=== PATIENT | male | born 1950 | race Caucasian/White ===

== ENCOUNTER 2019-07-03 07:28 | Inpatient (IN) | payer OTHER, BC ==
[2019-06-19 12:50] LABS: URINE BILIRUBIN NEGATIVE (Negative); URINE BLOOD TRACE (Negative); URINE CLARITY CLEAR; URINE COLOR YELLOW; URINE GLUCOSE-RANDOM* TRACE (Negative); URINE KETONES NEGATIVE (Negative); URINE LEUKOCYTES-REFLEX NEGATIVE (Negative); URINE NITRITE-REFLEX NEGATIVE (Negative); URINE PROTEIN (DIPSTICK) NEGATIVE (Negative); URINE UROBILINOGEN 0.2 E.U./dl (0.2-1.0)
--- NOTE | 2019-06-19 17:17 | EKG ---
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: [facility] : 1950 Requested By: Nigel Navarro Order Number: [id number] MD: Winston Richardson Measurements Intervals [place] Rate: 70 P: 49 ID: 182 QRS: -24 QRSD: 112 T: 77 QT: 397 QTc: 429 Interpretive Statements Sinus rhythm Ventricular bigeminy No previous ECG available for comparison Electronically Signed On 06-19-2019 17:17:23 CDT by Winston Richardson [email or web address] <ELECTRONICALLY SIGNED> By: Winston Richardson MD, [facility] 06/19/19 1717 1256 1256 Winston Richardson MD, FACC /EPI
[2019-07-03] VITALS (7 sets, daily range): BP systolic 109–135; BP diastolic 56–70
[~2019-07-03] VITALS: Ht 180.3 cm; Wt 94.8 kg
[~2019-07-03 07:28] MED LIST: ALLOPURINOL 10100 M3 PO; BACTROBAN CREAM30 G1; COLCHICINE0.6 MG PO; HYDROCODONE-AP1 EAC6 PO; PREDNISONE 10 M10 MG PO; PREDNISONE 5 MG5 M1 PO; PRILOSEC 20 MG20 MG PO; RENVELA800 MG PO; TUMS200 MG PO
--- NOTE | 2019-07-03 16:37 | NUR ---
TO UNIT FROM PACU BY BED AT 1500. DENIES PAIN. VSS. AT BEDSIDE. ORIENTED TO ROOM, MENU, AND UNIT. TWO SMALL BLOOD SPOTSF OUTLINED WITH SHARPIE. PEDAL PULSES 2+, DOYLE DIXON AND SCD'S IN PLACE. APNEA MONITOR, O2 AT 2L PER NC. WILL CONTINUE TO FOLLOW CLOSELY.
--- NOTE | 2019-07-04 03:10 | NUR ---
ASSUMED CARE OF PT @1900 PT ASSESSED AT START OF SHIFT A&OX4 DENIES PAIN. FLUIDS AND ABX INFUSING. AT SHIFT CHANGED AM NURSE DRAINED 350ML OF HEMOVAC WILL MONITOR DRAIN FOR TONIGHT. KATHY DRESSING IN PLACE AND SPOT MONITORED. SCD'S AND DOYLE HOSE IN PLACEPT HAS SLEEP APNEA DOESN'T USE ANY MACHINE AT HOME O2 @3L BEDTIME AND APNEA MONITOR IN PLACE. FALL PREC IN PLACE AND CALL LIGHT WITHIN REACH WILL CONT WITH POC TILL EOS.
[2019-07-04 05:34] LABS: HEMATOCRIT 26.6 % (42.0-52.0); HEMOGLOBIN 8.8 gm/dL (14.0-18.0); MCH 29.6 pg (26.0-34.0); MCHC 33.2 g/dL (28.0-37.0); MCV 89.1 fL (80.0-100.0); RBC 2.98 mil/uL (4.50-6.00); RDW 14.9 % (10.5-14.5); WBC 9.5 thou/uL (4.0-11.0)
[2019-07-04 09:01] VITALS: BP 114/50
--- NOTE | 2019-07-04 10:00 | NUR ---
INITIAL ASSESSMENT: Pt evaluated for d/c planning needs. Reviewed chart and spoke with nurse and pt. Pt is alert and oriented. Pt lives in house with spouse and was independent with ADL's prior to admission to the hospital. Pt has walker and cane at home. Pt has not had home health in the past. Pt has outpatient PT arranged. Pt plans on returning home on d/c from hospital. Will remain available to assist as needed.
[2019-07-04 10:21] VITALS: BP 114/50
--- NOTE | 2019-07-04 11:41 | NUR ---
PT CARE ASSUMED APPROX 0700. A&Ox4 PT IS ON NIGHT O2 WITH O2 IN THE LOW 90'S. HE IS ON 3L. MEDICATION ARE NOW RECONCILED. HE IS COMPLAINING ABOUT GOUT PAIN. KATHY DRESSING INTACT. ICEPACK IN PLACE. SCD'S IN PLACE. HEMOVAC WILL BE DC TODAY. FISTULA IN R. UA NOT IN USE. PT. DID PT GOT UP IN THE CHAIR AND BACK IN. WILL TRY AGAIN LATER TODAY
--- NOTE | 2019-07-04 12:37 | O ---
[facility] [place] [address] OPERATIVE REPORT Name: JUDY MCCLURE JR Room #: 436-P ADM IN M.R.#: [id number] Admission: 07/03/19 Attend Phys: Nigel Navarro MD Discharge: Date of : 46 Report #: [id number] THIS REPORT FOR: //name// CC: Nigel Miller DATE OF SERVICE: 07/03/2019 PREOPERATIVE DIAGNOSIS: End-stage degenerative arthritis, right knee. POSTOPERATIVE DIAGNOSIS: End-stage degenerative arthritis, right knee. PROCEDURE: Right total knee arthroplasty. SURGEON: Nigel Navarro MD INDICATIONS: This still active self-employed 68-year-old gentleman complains of severe progressive right knee pain. Clinical exam and x-rays confirm severe degenerative change with moderate varus malalignment. We discussed treatment options and elected to go ahead with right total knee arthroplasty. DESCRIPTION OF PROCEDURE: The patient was taken to the operating room where he was placed under general anesthesia. Prophylactic intravenous antibiotics were administered. A femoral nerve block was applied. General anesthesia was applied. Prophylactic intravenous antibiotics were given. The right knee and leg were meticulously prepped and draped. A thigh tourniquet was applied and inflated to 300 mmHg. An anterior longitudinal skin incision was made and carried through the medial retinaculum. The patella was reflected laterally. Moderately severe degenerative change in all 3 compartments was noted. The Balderas and Nephew knee system was utilized. Intramedullary guides were used on both the femur and the tibia. The femur was cut in 5 degrees of valgus and the tibia cut perpendicular to long axis of the bone. Sufficient bone was resected to correct the moderate flexion contracture and varus malalignment. The femur was best suited for a size 6 femoral component. The tibia was best suited for a size 5 tibial component. A 10 mm polyethylene insert resulted in good alignment, range of motion and stability. The knee fully extends and flexes beyond 140 degrees. The patellar surface was resected and a 35 mm patellar button seemed to fit nicely. Appropriate anchor holes were created. The patella tracks well and appeared stable. The trial components were removed. The surfaces were thoroughly irrigated and dried. The intramedullary canal was blocked with a bone block on both the femoral and tibial sides. Methyl methacrylate cement was mixed and injected into the porous surface of the tibia. The Balderas and Nephew size 5 tibial baseplate was inserted impacting this into good position. It seated nicely and appeared to be secure. A 10 mm polyethylene insert using the Legion cruciate retaining style was selected. This was impacted and snapped into place and seated nicely and appeared to be [address] [address] OPERATIVE REPORT Name: JUDY MCCLURE JR Room #: 436-P [facility] IN ..#: [id number] Admission: 07/03/19 Attend Phys: Nigel Navarro MD Discharge: Date of : 46 Report #: [id number]. A size 6 femoral component was then impacted on to the distal femur using a small amount of cement at the distal holes to make sure I correctly stayed at the tibia. Tibial baseplate was a size 5 and the femoral is a size 6. The femoral component seated nicely and appeared to be secure. A 35 mm patellar button was cemented into place using appropriate anchor holes. A patellar clamp was used until the cement had hardened. All excess cement was removed from around its margin. Once the cement was firm, alignment, range of motion and stability were assessed and felt to be satisfactory. A single Hemovac was left in the wound exiting through a separate stab incision. The fascia was closed with multiple #1 Vicryl sutures. The subcutaneous tissues were closed with 0 Monocryl. The skin was closed with skin kemar. A sterile dressing was applied. The patient was awakened and returned to recovery room in good condition. <ELECTRONICALLY SIGNED> By: Nigel Navarro MD 07/04/19 1237 1129 [id number] Nigel Navarro MD /nt
[2019-07-04 15:37] VITALS: BP 113/68
[2019-07-04 15:44] VITALS: BP 126/60
[2019-07-04 19:40] VITALS: BP 141/57
--- NOTE | 2019-07-05 02:48 | NUR ---
ASSUMED PT CARE ON 07/04/19. PT IS ALERT AND ORIENTED X4. PT STATES THAT HIS PAIN IS AT A 5 ON THE NUMERIC SCALE. PT WAS ADMINISTERED PAIN MEDICATION ALONG WITH HIS SCHEDULED MEDICATION PT REFUSED THE ENOXAPRIN. I REFILLED HIS ICE PACK. PT VOIDED IN URINAL. WEENING PT OFF OF OXYGEN BECAUSE HE DOES NOT US IT AT HOME. RIGHT NOW PT IS ON 1L. PT THOUGHT IF WE TOOK THE OCYGEN OFF THAT HE WOULD BE ABLE TO TAKE OFF THE CO2 MONITOR. I EDUCATED HIM ON WHY HE WAS ON THE MONITOR. PT STATES THAT HE IS ANNOYED WITH HIS MONITOR GOING OFF. WHEN OFFERED EAR PLUGS HE SAID THEY DO NOT WORK WELL. WILL CONTINUE TO MONITOR.
[2019-07-05 05:14] VITALS: BP 135/75
[2019-07-05 05:35] LABS: HEMOGLOBIN 7.6 gm/dL (14.0-18.0); MCH 29.7 pg (26.0-34.0); MCHC 33.2 g/dL (28.0-37.0); MCV 89.3 fL (80.0-100.0); RBC 2.58 mil/uL (4.50-6.00); RDW 14.8 % (10.5-14.5); WBC 7.9 thou/uL (4.0-11.0)
[2019-07-05 07:38] VITALS: BP 134/71
[2019-07-05 17:20] VITALS: BP 136/67
[2019-07-05 19:20] VITALS: BP 140/64
--- NOTE | 2019-07-05 22:55 | NUR ---
ASSESSMENT COMPLETED. PT IS ALERT AND ORIENTED. DENIES PAIN WHILE AT REST.TOMAS TEDS IN PLACE.ICEPAK APPLIED TO R KNEE.PT USES HEATING PAD FROM HOME FOR R THIGH PAIN. PT REFUSED LOVENOX TONIGHT.DRSG TO R KNEE IS C/D/I.PT IS SATTING >97% ON ROOM AIR.AFEBRILE. PT VOIDING OKAY PER URINAL. PT DOING SIMPLE EXERCISES WITH RLE.CALL LIGHT WITHIN REACH.
[2019-07-06] VITALS (10 sets, daily range): BP systolic 102–135; BP diastolic 29–83
[2019-07-06 05:22] LABS: HEMATOCRIT 21.2 % (42.0-52.0); HEMOGLOBIN 7.1 gm/dL (14.0-18.0); MCHC 33.8 g/dL (28.0-37.0); RBC 2.38 mil/uL (4.50-6.00); RDW 14.9 % (10.5-14.5); WBC 7.9 thou/uL (4.0-11.0)
--- NOTE | 2019-07-06 12:31 | NUR ---
PT SEEN BY DR. GLORIA AND PHIL THIS AM. FEELING DIZZY WITH POSTURAL CHANGES AND HGB 7.1 THIS AM. PT RECIEVING ONE UNIT PRBC'S TODAY. WORKED W/ THERAPIST THIS AM AND SITTING IN RECLINER.
--- NOTE | 2019-07-06 13:34 | NUR ---
PT UP TO THE BSC W/ GAIT BELT AND ASSIST OF 2 TO BSC FOR BM. UPON STANDING AND RETURNING TO THE RECLINER PT DID NOT RESPOND BUT STARRED STRAIGHT AHEAD. CODE CALLED AND RECLINED PT BACK FAR POSSIBLE AND PICKED LEGS UP IN THE AIR AND PT CAME BACK AROUND. PT STATED HE FELT FINE AND COULD HEAR ME CALL HIS NAME BUT COULDN'T RESPOND. BLOOD TRANSFUSION NOTED TO BE INFILTRATED AND IV NURSE SUMMONED TO RESTART PT SKIN VERY THIN AND BRUISED. BP NOW TAKING IN LT LL 115/29.
--- NOTE | 2019-07-06 18:10 | NUR ---
DR. VILLARREAL UPDATED ON PT CONDITION AFTER BLOOD TRANSFUSION. PT FEELING BETTER-COLOR BETTER. TAKING BP IN LT LOWER LEG AND BP BETTER NOW. REPEAT HGB IN AM. USING BEDPAN THIS EVENING. HERE FOR VISIT.
[2019-07-07 04:34] VITALS: BP 107/47
--- NOTE | 2019-07-07 05:29 | NUR ---
ASSUMED CARE OF PT @1900 PT ASSESSED AT START OF SHIFT A&OX4 WITH C/O PAIN IN RT KNEE PAIN MEDS GIVEN AND ICE PACK REFILLED. OFFERED TO GET PT UP IN BED STARTED HE WAS FINE FOR NOW AND WILL GET UP TOWARDS THE MORNING. ENCOURAGED LEG MOVEMENTS IN BED. PT CALLED OUT TOWARDS THE NIGHT STATED FEELING A LITTLE DISCONNECTED TO PLACE, AND DIZZY LAYING DOWN. FULL ASSESSMENT DONE AND NEURO INTACT, A&OX4. VITALS DONE AND LOW DIASTOLIC BP NOTED 104/36. PT DRINKING LOTS OF PO FLUIDS. SPOKE WITH ONCALL AND ONETIME ORDER OF 500ML NS BAG GIVEN. BP CAME UP TO 107/47. NO OTHER SYMPTOMS. PT STATED FEELING BETTER. FALL PREC INPLACE AND CALL LIGHT WITHIN REACH WILL CONT WITH POC TILL EOS.
[2019-07-07 05:49] LABS: HEMATOCRIT 21.7 % (42.0-52.0); HEMOGLOBIN 7.3 gm/dL (14.0-18.0); MCH 29.9 pg (26.0-34.0); MCHC 33.6 g/dL (28.0-37.0); MCV 88.9 fL (80.0-100.0); RBC 2.44 mil/uL (4.50-6.00); RDW 14.5 % (10.5-14.5)
[2019-07-07 07:30] VITALS: BP 145/50
--- NOTE | 2019-07-07 12:27 | EKG ---
[address] [employer] [place] [address] ELECTROCARDIOGRAM REPORT Name: JUDY MCCLURE JR Room #: 436-P ADM IN M.R.#: [id number] Admission: 07/03/19 Attend Phys: Nigel Navarro MD Discharge: Date of : 46 Report #: [id number] THIS REPORT FOR: //name// [facility] Test Date: 2019-07-06 Test Time: 14:59:29 Pat Name: JUDY MCCLURE Department: Room: 436 P Gender: M Title Department Manager: Baljeet PARKER : 1950 Requested By: Landry De La Torre Order Number: [id number] MD: Ezio Bill Measurements Intervals [place] Rate: 88 P: 30 CO: 185 QRS: -25 QRSD: 111 T: 108 QT: 353 QTc: 427 Interpretive Statements Sinus rhythm Borderline left axis deviation Borderline repolarization abnormality Compared to ECG 06/19/2019 12:56:03 Ventricular premature complex(es) no longer present Electronically Signed On 07-07-2019 12:26:58 FRESH WORK INSPECTOR by Ezio Bill [email or web address] <ELECTRONICALLY SIGNED> By: Ezio Bill MD 07/07/19 1226 1459 58 Ezio Bill MD /CRYSTAL
--- NOTE | 2019-07-07 13:17 | NUR ---
ASSUMED CARE OF PT AT 0700. PT IS IN L UPPER ARM DRY AND INTACT. KATHY DRESSING CLEAN, DRY AND INTACT, WITH NO DRAINAGE OBSERVED. PT WAS UNABLE TO FULFILL PT OUT OF [facility] ROOM DUE TO DIZZINESS. PAIN CONTROLLED BY PAIN MEDICATION. BP IS RUNNING LOW AND IS BEING MONITORED. PT IS IN CHAIR WITH ALARM ON AND FEET ELEVATED. CALL LIGHT WITHIN REACH AND FALL PRECAUTIONS IN PLACE. WILL CONTINUE TO MONITOR THE PT.
[2019-07-07 15:56] VITALS: BP 117/46
[2019-07-07 20:00] VITALS: BP 173/66
[2019-07-07 23:48] VITALS: BP 152/64
[2019-07-08 05:34] LABS: HEMOGLOBIN 6.9 gm/dL (14.0-18.0)
[2019-07-08 05:37] LABS: HEMATOCRIT 20.3 % (42.0-52.0); MCH 30.3 pg (26.0-34.0); MCHC 34.2 g/dL (28.0-37.0); MCV 88.7 fL (80.0-100.0); RBC 2.29 mil/uL (4.50-6.00); RDW 14.6 % (10.5-14.5)
--- NOTE | 2019-07-08 07:30 | NUR ---
PATIENT ALERT AND ORIENTED X4. AT BEDSIDE IN EARLY EVENING, HOWEVER, DID NOT STAY THE NIGHT. USING URINAL WITH CLEAR LIGHT YELLOW URINE. NO BM. DENIES ANY SIGNIFICANT PAIN (RATED 2) AND REFUSED PAIN MEDICATION DURING THE NIGHT. DRESSING DRY AND INTACT. ICE PACK PRN. NOT UP DURINIG THE NIGHT. WILL MONITOR.
[2019-07-08 08:24] VITALS: BP 102/58
--- NOTE | 2019-07-08 10:18 | NUR ---
ASSUMED CARE OF PT AT 0700. PHYSICAL THERAPY WALKED WITH THE PT AROUND THE ROOM WITHOUT DIZZINESS. PTS HGB IS 6.9, BLOOD TRANSFUSION HAS BEEN ORDERED AND CONSENTS HAVE BEEN SIGNED. PT HAS BEEN DOING LEG EXERCISES IN THE BED. PAIN IS BEING CONTROLLED BY PAIN MEDICATIONS. FALL PRECAUTIONS ARE IN PLACE AND CALL LIGHT IS WITHIN REACH. CHAIR AND BED ALARM IS ON. WILL CONTINUE TO MONITOR THE PT.
[2019-07-08 11:32] VITALS: BP 93/73
[2019-07-08 16:07] VITALS: BP 114/58; BP 93/73
[2019-07-08 19:40] VITALS: BP 103/39
[2019-07-09 04:10] VITALS: BP 137/47
--- NOTE | 2019-07-09 04:11 | NUR ---
PATIENT ALERT AND ORIENTED X4. C/O KNEE PAIN AND MEDICATED WITH GOOD RESULTS. COOPERATIVE WITH CARE. USING URINAL WITH CLEAR LIGHT YELLOW URINE. PATIENT NOT UP DURING THE NIGHT. RESTING QUIETLY. WILL MONITOR.
[2019-07-09 05:32] LABS: HEMOGLOBIN 8.8 gm/dL (14.0-18.0); MCH 29.9 pg (26.0-34.0); MCHC 33.8 g/dL (28.0-37.0); MCV 88.5 fL (80.0-100.0); RBC 2.94 mil/uL (4.50-6.00); RDW 14.9 % (10.5-14.5); WBC 6.8 thou/uL (4.0-11.0)
[2019-07-09 08:50] VITALS: BP 136/54
--- NOTE | 2019-07-09 14:29 | NUR ---
ASSUMED CARE OF PT AT 0700. PT IS UP AND WALKING AROUND THE ROOM AND DOWN THE HALLS WITHOUT FATIGUE AND SOME PAIN. PT HAD A FORMED BM TODAY. HGB IS 8.8. L UPPER ARM IV IS DRY AND INTACT. CALL LIGHT IS WITHIN REACH AND BED IS IN THE LOWEST POSITION WITH BED ALARM ON. WILL CONTINUE TO MONITOR THE PT.
[2019-07-09 16:38] VITALS: BP 126/106
[2019-07-09 19:02] VITALS: BP 124/51
--- NOTE | 2019-07-10 06:31 | NUR ---
PATIENT ALERT AND ORIENTED X4. UP WITH WALKER AND ONE ASSIST TO BATHROOM FOR SMALL BM DURING THE NIGHT. COOPERATIVE WITH CARE. RESTING QUIETLY. WILL MONITOR.
[2019-07-10 07:20] VITALS: BP 114/81
--- NOTE | 2019-07-10 10:36 | NUR ---
Assess due to length of stay. S/P right TKR. Pt ambulating, eating 100% meals, no significant wt changes. Low nutrition risk
--- NOTE | 2019-07-10 10:49 | NUR ---
FAXED REFERRAL TO [facility] SPOKE WITH JHON IN ADM SHE RECEIVED REFERRAL AND WILL REVIEW PT IS DC READY TODAY. DP TO FOLLOW.
--- NOTE | 2019-07-10 11:13 | NUR ---
PT A&OX4. IV IN GLADIS INTACT. KATHY DRSG TO R KNEE INTACT. AMBULATING WITH PT AND WALKER. TOLERATING PO WELL. MEDICATED PRIOR TO PT THIS AM. DENIES ANY NAUSEA. WILL CONT POC.
[2019-07-10] MEDS ORDERED: ENOXAPARIN30 MG/0.1 SUBQ (12:43)
--- NOTE | 2019-07-10 14:21 | NUR ---
DISCUSSED DC OPTIONS WITH PT- HOME WITH HH SERVICES, HOME WITH OUTPT SERVICES OR SKILLED REHAB. PT SAYS HE WILL DISCUSS WITH DR BUT IS LEANING TOWARDS HOME WITH OUTPT SERVICES. HE SAYS HE HAS SOMEONE TO ASSIST WITH TRANSPORT TO OUTPT. DR GLORIA HERE AND THEY HAVE DECIDED TO GO HOME WITH OUTPT SERVICES TODAY. CASE DISCUSSED WITH KIANNA LOPEZ AND PT HAS BEEN TRIALED ON STAIRS TODAY.
[2019-07-10 15:59] VITALS: BP 114/81
--- NOTE | 2019-07-10 17:35 | NUR ---
PEARL PARKER RECEIVED. IV REMOVED FROM [facility]. DC INSTRUCTIONS, SCRIPTS AND F/U APPOINTMENTS REVIEWED WITH PT. VOLUNTEER WILL TRANSPORT PT TO MAIN ENTRANCE AFTER DINNER.
== END 2019-07-10 19:10 | disposition home or self-care (01) | DRG 470 ==
LOC: 4S 07:28 → TBA 07:28 → PRE 12:08 → 4S 14:46
PROVIDERS: Hospitalist; ADMIT Orthopaedic Surgery
PROC: 0SRC0J9 Replacement of Right Knee Joint with Synthetic Substitute, Cemented, Open Approach (ICD-10-PCS; principal; 2019-07-03)
PROC: 30233N1 Transfusion of Nonautologous Red Blood Cells into Peripheral Vein, Percutaneous Approach (ICD-10-PCS; 2019-07-08)
DX: M17.11 Unilateral primary osteoarthritis, right knee (principal); N18.5 Chronic kidney disease, stage 5; D62 Acute posthemorrhagic anemia; Z88.6 Allergy status to analgesic agent; I95.1 Orthostatic hypotension
CPT/HCPCS: 10102; 50010; 50101; 50415; 50954; 51130; 51225; 51412; 51771; 53364; 56525; 57095; 57104; 57180; 62110; 62900; 64043; 65060; 70005

== ENCOUNTER → 2020-02-06 | Outpatient (CLI) | payer OTHER, BC ==
[~2020-02-06] MED LIST changes: +ENOXAPARIN30 MG/0.1 SUBQ
== END ==
LOC: ULTRA 02-01 11:17
DX: I70.203 Unspecified atherosclerosis of native arteries of extremities, bilateral legs (principal)

== ENCOUNTER → 2020-05-09 | Outpatient (CLI) | payer OTHER ==
[2020-05-09] VITALS (9 sets, daily range): BP systolic 123–150; BP diastolic 57–99
[~2020-05-09] VITALS: Ht 180.3 cm; Wt 95.3 kg
[~2020-05-09] MED LIST changes: +COLCRYS0.6 MG PO; +DICYCLOMINE HCL20 MG PO; +FLOMAX0.4 MG PO
[2020-05-09 11:59] LABS: HEMATOCRIT 35.3 % (42.0-52.0); HEMOGLOBIN 11.7 gm/dL (14.0-18.0); MCH 30.1 pg (26.0-34.0); MCHC 33.2 g/dL (28.0-37.0); MCV 90.5 fL (80.0-100.0); RBC 3.9 mil/uL (4.50-6.00); RDW 17.2 % (10.5-14.5); WBC 8.2 thou/uL (4.0-11.0)
[2020-05-09 12:09] LABS: CALCIUM 8.4 mg/dL (8.5-10.1); POTASSIUM 4.7 mmol/L (3.5-5.1)
== END | disposition home or self-care (01) ==
LOC: CATH 07:07
PROVIDERS: ATTEND Nuclear Medicine Nuclear Cardiology
DX: I70.213 Atherosclerosis of native arteries of extremities with intermittent claudication, bilateral legs (principal); I70.1 Atherosclerosis of renal artery; I12.9 Hypertensive chronic kidney disease with stage 1 through stage 4 chronic kidney disease, or unspecified chronic kidney disease; N18.9 Chronic kidney disease, unspecified; M19.90 Unspecified osteoarthritis, unspecified site; M10.9 Gout, unspecified; E21.3 Hyperparathyroidism, unspecified; Z98.890 Other specified postprocedural states; Z79.899 Other long term (current) drug therapy; Z98.42 Cataract extraction status, left eye; Z98.41 Cataract extraction status, right eye; Z96.652 Presence of left artificial knee joint; Z99.2 Dependence on renal dialysis; Z88.8 Allergy status to other drugs, medicaments and biological substances

== ENCOUNTER → 2020-11-26 | Outpatient (CLI) | payer OTHER, BC ==
[~2020-11-26] MED LIST changes: +ASA81BEC PO; +CLOPIDOGREL75 MG PO; +HYDROCODON-ACE1 EAC8 PO; +TIZANIDINE HCL 22 M1 PO
== END ==
LOC: LAB 09:52
PROVIDERS: ATTEND Orthopaedic Surgery Foot and Ankle Surgery
DX: Z01.812 Encounter for preprocedural laboratory examination (principal); Z20.822 Contact with and (suspected) exposure to COVID-19

== ENCOUNTER → 2020-11-29 | Outpatient (CLI) | payer OTHER, BC ==
[~2020-11-29] MED LIST changes: +AMOX TR-K CLV1 EAC3 PO; +PERCOCET 7.5-31 EAC1 PO
== END ==
LOC: LAB 09:15
PROVIDERS: ATTEND Orthopaedic Surgery Foot and Ankle Surgery
DX: Z01.812 Encounter for preprocedural laboratory examination (principal); Z20.822 Contact with and (suspected) exposure to COVID-19

== ENCOUNTER → 2020-12-04 | Day surgery (SDC) | payer OTHER, BC ==
[~2020-12-04] VITALS: Ht 180.3 cm; Wt 88.9 kg
--- NOTE | ~2020-12-04 | O ---
[facility] [place] [address] OPERATIVE REPORT Name: JUDY MCCLURE Room #: REG [facility].#: [id number] Admission: 12/04/20 Attend Phys: Derik Woods MD Discharge: Date of : 46 Report #: [id number] THIS REPORT FOR: cc: Navid Miller MD, Douglas L. MD Kneidel,Derik Whitehead MD ~ DATE OF SERVICE: 12/04/2020 PREOPERATIVE DIAGNOSIS: Left great toe osteomyelitis. POSTOPERATIVE DIAGNOSIS: Left great toe osteomyelitis. PROCEDURE: Left great toe amputation. SURGEON: Dr. Derik Woods. GLOBAL COORDINATOR: Julia Walters. ANESTHESIA: General. ESTIMATED BLOOD LOSS: Minimal. DRAINS: No drains. TOURNIQUET TIME: 15 minutes. DESCRIPTION OF PROCEDURE: The patient brought to the operating room where he was placed under general anesthesia. Once under adequate general anesthesia, his left lower extremity was prepped and draped in sterile manner. The extremity was elevated and tourniquet placed to 250 mmHg. A fishmouth-type incision about the proximal interphalangeal joint of the great toe was made. This was taken sharply down to bone, elevating the bone off of the proximal phalangeal head, which was then resected utilizing a sagittal saw, completing the amputation. Once complete, the wound was irrigated copiously and closed with 2-0 nylon suture in a simple stitch manner. The wound was dressed with Xeroform, 4 x 4s, and a sterile soft compressive dressing was placed. Tourniquet was let down approximately 15 minutes. The remainder of the toes were pink and warm with good capillary refill. There were no complications from the procedure. The patient tolerated the procedure well and went to recovery room without incident. By: 0957 1019 Derik Woods MD /nt
[2020-12-04 08:28] LABS: HEMATOCRIT 31.2 % (42.0-52.0); HEMOGLOBIN 10.2 gm/dL (14.0-18.0); MCH 28.4 pg (26.0-34.0); MCHC 32.7 g/dL (28.0-37.0); MCV 86.7 fL (80.0-100.0); RBC 3.59 mil/uL (4.50-6.00); RDW 16.9 % (10.5-14.5); WBC 6.5 thou/uL (4.0-11.0)
[2020-12-04 08:35] LABS: CALCIUM 9.8 mg/dL (8.5-10.1); CREATININE 4.1 mg/dL (0.7-1.3); POTASSIUM 4.1 mmol/L (3.5-5.1)
[2020-12-04 08:41] LABS: ALBUMIN 3.3 g/dL (3.4-5.0); TOTAL BILIRUBIN 0.5 mg/dL (0.2-1.0); TOTAL PROTEIN 6.3 g/dL (6.4-8.2)
[2020-12-04 09:18] VITALS: BP 114/66
[2020-12-04 10:14] VITALS: BP 114/66
--- NOTE | 2020-12-09 17:06 | PATH ---
[facility] [address] [place] [address] PATHOLOGY RPT PROCEDURE Name: JUDY BUTTERFIELD Room #: REG [facility] M.R.#: [id number] Admission: 12/04/20 Date of : 46 Discharge: Report #: [id number] Path Case #: [id number] L[facility] Accession Number: [id number] . 01 Material submitted: . toe - LEFT GREAT TOE. Modifiers: left, great . 02 Diagnosis: Toe, left great toe, amputation: - Acute osteomyelitis associated with osteonecrosis. - Skin and subcutaneous tissue with ulceration, extensive gangrenous necrosis, as well as fibrinoid degeneration. - Margins showing viable bone as well as skin/soft tissue. - Additional fragment showing reactive bone. (IUV:smitha; 12/09/2020) QMS 12/09/2020 1513 Local . 02 Electronically signed: . Acacia Yuan MD, Pathologist NPI- [id number] . 01 Gross description: . Received in formalin labeled "Judy Butterfield, left great toe" is a toe disarticulation specimen measuring 4.0 x 3.5 x 2.9 cm. The toe displays a draper-white nail measuring 1.9 x 1.7 x 0.2 cm. Directly adjacent to the nail is a draper-brown ulcerated lesion measuring 1.3 x 1.2 x 0.5 cm. The proximal margin is smooth and consistent with a surgical margin, and is grossly viable. The proximal aspect of bone consists of a concave cartilage covered disarticulation. The previously described lesion is located 2.3 cm from the closest skin and soft tissue margin and 2.6 cm from the bone disarticulation. Also present within the container is a separate segment of draper-white bone measuring 2.2 x 1.2 x 1.2 cm. One aspect has a smooth surgical margin, inked black. The opposite aspect is a convex cartilage covered disarticulation. [employer] sections of the specimen are submitted following decalcification as follows: A1-A2 cross-section of toe with lesion and closest margin A3 separate segment of bone ([facility] 12/05/2020) [facility] 12/09/2020 1512 Local . 02 Pathologist provided ICD-10: M86.172, M87.9, L97.529, I96 . 02 CPT . 421246, 311553 Specimen Comment: A courtesy copy of this report has been sent to [phone] Specimen Comment: [id number] [address] PATHOLOGY RPT PROCEDURE Name: JUDY BUTTERFIELD Room #: REG [facility].#: [id number] Admission: 12/04/20 Date of : 46 Discharge: Report #: [id number] Path Case #: [id number] Specimen Comment: Report sent to / DR FLORES Performed at: 01 [facility] [address] [facility] [address], [place] [id number] MD Zain Hernandez MD Phone: [phone] Performed at: [address] [id number] MD Acacia Yuan MD Phone: [phone]
== END | disposition home or self-care (01) ==
LOC: OR
PROVIDERS: Anesthesiology; ATTEND Orthopaedic Surgery Foot and Ankle Surgery
DX: M86.172 Other acute osteomyelitis, left ankle and foot (principal); M87.9 Osteonecrosis, unspecified; L97.529 Non-pressure chronic ulcer of other part of left foot with unspecified severity; I96 Gangrene, not elsewhere classified; N18.9 Chronic kidney disease, unspecified; N40.0 Benign prostatic hyperplasia without lower urinary tract symptoms; M19.90 Unspecified osteoarthritis, unspecified site; M10.9 Gout, unspecified; Z96.652 Presence of left artificial knee joint; Z90.49 Acquired absence of other specified parts of digestive tract; Z98.890 Other specified postprocedural states; Z79.899 Other long term (current) drug therapy; Z98.41 Cataract extraction status, right eye; Z98.42 Cataract extraction status, left eye; Z99.2 Dependence on renal dialysis; Z86.2 Personal history of diseases of the blood and blood-forming organs and certain disorders involving the immune mechanism
CPT/HCPCS: 50010; 50101; 50386; 50951; 57091; 57179; 62110; 62900; 70005

== ENCOUNTER → 2021-01-10 | Outpatient (CLI) | payer OTHER, BC | LOC: SJCVC 13:21 | PROVIDERS: ATTEND Internal Medicine | DX: R94.31 Abnormal electrocardiogram [ECG] [EKG] (principal); I25.118 Atherosclerotic heart disease of native coronary artery with other forms of angina pectoris; E78.5 Hyperlipidemia, unspecified; I73.9 Peripheral vascular disease, unspecified; G47.33 Obstructive sleep apnea (adult) (pediatric); I12.0 Hypertensive chronic kidney disease with stage 5 chronic kidney disease or end stage renal disease; N18.6 End stage renal disease; M19.90 Unspecified osteoarthritis, unspecified site; M10.9 Gout, unspecified; Z79.899 Other long term (current) drug therapy; Z99.2 Dependence on renal dialysis; Z88.6 Allergy status to analgesic agent; Z88.1 Allergy status to other antibiotic agents ==